=== PATIENT | male | born 1960 | race Caucasian/White ===

== ENCOUNTER 2017-01-25 13:49 | Day surgery (SDC) | payer OTHER ==
[~2017-01-25] VITALS: Ht 160 cm; Wt 79.1 kg
[2017-01-25] MEDS ORDERED: PROPOFOL 40 ML ONE ×2 (14:19→15:06)
[2017-01-25] MEDS ORDERED: LIDOCAINE 2% (SDV) 5 ML INJ ONE (14:19)
[2017-01-25 14:20] VITALS: Ht 160 cm; Wt 79.1 kg
[2017-01-25 14:25] VITALS: BP 141/94; PULSE 67; RESP 18
[2017-01-25] MEDS ORDERED: PROPOFOL 20 ML ONE (14:47)
--- NOTE | 2017-01-25 15:26 | OPPN ---
Date/Time of Note Date/Time of Note DATE: 01/25/17 TIME: 15:25 Operative Report Preoperative Diagnosis Positive occult blood in stool History of colon polyps Postoperative Diagnosis Multiple colon polyps were removed Operation/Procedure Performed Colonoscopy biopsy and polypectomy Surgeon see signature line human resources office assistant None Anesthesia: MAC Estimated blood loss: none Transfusion Required none Specimen Colon polyps Grafts/Implants none Complications none LILI ROJO MD Jan 25, 2017 15:26
--- NOTE | 2017-01-26 01:03 | GILP ---
DATE OF PROCEDURE: NAME OF PROCEDURES: Colonoscopy, biopsy and polypectomy. SURGEON: Lili Calzada MD PREOPERATIVE DIAGNOSES: 1. Positive occult blood in stool. 2. History of colon polyps. POSTOPERATIVE DIAGNOSES: 1. Colonoscopy all the way to the cecum. 2. Multiple colon polyps were removed using the biopsy forceps as well as snare and electrocautery. 3. Internal hemorrhoids. INDICATION FOR THE PROCEDURE: Mr. Kit Vázquez is a 56-year-old male patient who had positive occult blood in stool. He had history of colon polyps. The patient was scheduled for colonoscopy for further evaluation. The procedure and possible complications were well explained to the patient. The patient understood and consented to the procedure. DESCRIPTION OF PROCEDURE: Under the influence of anesthesia, the colonoscope was carefully introduc ed in the rectum and under direct vision, it was advanced all the way to the cecum. FINDINGS: The patient had multiple colon polyps and they were removed using the biopsy forceps as w ell as snare and electrocautery. The larger polyps were in the sigmoid colon. He also had internal hemorrhoids. He tolerated the procedure very well and there was no complication from the procedure. At the end o f the procedure, he was awake with stable vital signs and he was discharged home to the care of his family. IMPRESSION: Please see postoperative diagnoses. PLAN: 1. Await histopathology report. 2. Because of the multiple colon polyps he had, he will need next screening colonoscopy in 3 years. Dictated By: LILI ACEVEDO/TOMAS Conf#: [id number] DID#: [id number]
== END 2017-01-25 16:17 | disposition home or self-care (01) ==
LOC: GIL 13:49
PROVIDERS: ATTEND Internal Medicine Gastroenterology
DX: K92.1 Melena (principal); K63.5 Polyp of colon; K64.8 Other hemorrhoids; F17.200 Nicotine dependence, unspecified, uncomplicated
CPT/HCPCS: 45380; 88305; Z7610

== ENCOUNTER → 2018-08-09 | Outpatient (CLI) | payer OTHER ==
[~2018-08-09] MED LIST: IOHEXOL 100 ML ONE; NITROGLYCERIN AEROSOL (4.9 GM) ONE; SOD CHLORIDE 0.9% 100 ML ONE
== END | disposition home or self-care (01) ==
LOC: C/S 12:22
PROVIDERS: ATTEND Internal Medicine Interventional Cardiology
DX: R07.9 Chest pain, unspecified (principal)
CPT/HCPCS: 75571; 75574; Q9967; Z7610